=== PATIENT | female | born 2000 | race Caucasian/White ===

== ENCOUNTER 2023-01-07 01:39 | Emergency (ER) | payer BC, MEDICAID ==
[~2023-01-07] VITALS: Ht 177.8 cm; Wt 90.7 kg
[2023-01-07] MEDS ORDERED: PRED50TA PO (01:51)
[2023-01-07] MEDS ORDERED: dexaMETHasone SOD PHOSPHATE 10 MG/ML VIAL ONE (01:54)
[2023-01-07] MEDS ORDERED: FAMOTIDINE (20 MG) 20 MG TABLET ONE (01:54)
[2023-01-07] MEDS ORDERED: diphenhydrAMINE HCL 25 MG CAPSULE ONE (01:54)
[2023-01-07 02:01] VITALS: BP 107/67; TEMP 98.2; O2SAT 97
[2023-01-07] MEDS: dexaMETHasone SOD PHOSPHATE 4 MG/ML VIAL IM ONE (02:01)
[2023-01-07] MEDS: diphenhydrAMINE HCL 25 MG CAPSULE PO ONE (02:01)
[2023-01-07] MEDS: FAMOTIDINE (20 MG) 20 MG TABLET PO ONE (02:01)
== END 2023-01-07 02:05 | disposition home or self-care (01) ==
LOC: ER 01:41
DX: L50.9 Urticaria, unspecified (principal)
CPT/HCPCS: 99283; 96372; J1100; Q0163